=== PATIENT | female | born 1955 | race Caucasian/White ===

== ENCOUNTER 2017-03-16 15:41 | Inpatient (IN) | payer OTHER, MEDICARE ==
[~2017-03-16] VITALS: Ht 158.8 cm; Wt 104.5 kg
[2017-03-26] MEDS ORDERED: CITA40TA4 PO (10:44)
[2017-03-26] MEDS ORDERED: AMLO10TA2 PO (10:44)
[2017-03-26] MEDS ORDERED: LEVO75TA3 PO (10:44)
[2017-03-26] MEDS ORDERED: ROPI5TAB PO (10:44)
[2017-03-26] MEDS ORDERED: GABA300C5 PO (10:44)
[2017-03-26] MEDS ORDERED: ASPI81TA11 PO (10:45)
[2017-03-31] MEDS ORDERED: CHLORHEXIDINE GLUCONATE 2 % 1 PACK (2 CLOTHS) TOPICAL PRN (06:45)
[2017-03-31] MEDS ORDERED: INSULIN HUMAN REGULAR 1,000 UNITS/10 ML VIAL SQ PRN (06:45)
[2017-03-31] MEDS ORDERED: METOPROLOL TARTRATE 25 MG TAB PO PRN (06:45)
[2017-03-31] MEDS ORDERED: SODIUM CHLORID 0.9% 500 ML IV PRN (06:45)
[2017-03-31] MEDS ORDERED: DEXAMETHASONE SOD PHOS 4 MG/ML VIAL IV SCH (06:45)
[2017-03-31] MEDS ORDERED: POVIDONE IODINE 5% (ANTISEPSIS KIT) 4 APPLICATIONS EACH NARE PRN (06:45)
[2017-03-31] MEDS ORDERED: LACTATED RINGER'S 1000 ML IV PRN (06:45)
[2017-03-31] MEDS ORDERED: DEXAMETHASONE SOD PHOS 20 MG/5 ML VIAL ONE (06:45)
[2017-03-31] MEDS ORDERED: POVIDONE IODINE 7.5% SCRUB 118 ML BOTTLE TOPICAL SCH (06:45)
[2017-03-31] MEDS ORDERED: VANCOMYCIN 1000 MG/NS 250 ML (for <70 kg) IV SCH ×2 (06:45)
[2017-03-31] MEDS ORDERED: ceFAZolin 2 GM PREMIX 50 ML IV SCH (06:45)
--- NOTE | 2017-03-31 06:54 | HHI.DCPOC ---
Discharge Care Plan Diagnosis: (1) Status post total knee replacement, left (2) Primary localized osteoarthrosis, lower leg Your Health Problems Are: Difficulty with ADL Goals to Promote Your Health * To prevent worsening of your condition and complications * To maintain your health at the optimal level Directions to Meet Your Goals Take your medications as prescribed Follow your dietary instruction Follow activity as directed Keep your appointments as scheduled Take your immunizations and boosters as scheduled If your symptoms worsen call your PCP, if no PCP go to Urgent Care Center or Emergency Room Smoking is Dangerous to Your Health. Avoid second hand smoke Call the 24-hour hour crisis hotline for domestic abuse at Gregory Brambila Mar 31, 2017 06:54
--- NOTE | 2017-03-31 06:55 | HHI.FF ---
Face to Face Verification Diagnosis: (1) Primary localized osteoarthrosis, lower leg (2) Status post total knee replacement, left Physical Therapy Gait training, Transfer training, bed to chair Knee: Total knee Left LE Weight Bearing: WB as tolerated Left LE Range of Motion: Active ROM Nursing Nursing: Jamilah teaching, Dressing changes Dressing Changes: Daily dressing change I have seen patient Nakita Spence on 03/31/17. My clinical findings support the need for the requested home health care services because: Limited ability to care for self High risk of falls I certify that my clinical findings support that this patient is homebound because: Post-op weakness Unsteady gait/balance Gregory Brambila Mar 31, 2017 06:55
[2017-03-31] MEDS ORDERED: CPMMACHINE (06:57)
[2017-03-31] MEDS ORDERED: COMMODE 3-IN-11 MIS (06:57)
[2017-03-31] MEDS ORDERED: WALKER WHEELS/F1 MIS (06:57)
[2017-03-31] MEDS ORDERED: GENTAMICIN SULFATE 80 MG/2 ML VIAL ONE (06:59)
[2017-03-31] MEDS ORDERED: ROPIVACAINE PERI-ARTICULAR INJECTION. P-ARTICULR SCH ×5 (07:00)
[2017-03-31] MEDS ORDERED: TRANEXAMIC ACID IV SCH ×2 (07:00→11:00)
[2017-03-31] MEDS ORDERED: SODIUM CHLORIDE 0.9% IV SCH ×2 (07:00→11:00)
[2017-03-31 07:01] VITALS: BP 154/81; PULSE 74; RESP 18; TEMP 98.1; O2SAT 97
[2017-03-31] MEDS ORDERED: FAMOTIDINE 20 MG/2 ML VIAL ONE (07:50)
[2017-03-31] MEDS ORDERED: DICLOFENAC SODIUM 37.5 MG/ML VIAL IV PUSH ONE (07:51)
[2017-03-31] MEDS ORDERED: MIDAZOLAM HCL 2 MG/2 ML VIAL ONE (07:51)
[2017-03-31] MEDS ORDERED: VANCOMYCIN HCL 1000 MG VIAL ONE (08:25)
--- NOTE | 2017-03-31 10:21 | PD.OP ---
cc: Fredy Montgomery MD Operative Report Date of Surgery: Mar 31, 2017 Preoperative Diagnosis: Left knee severe osteoarthritis Postoperative Diagnosis: Same Procedure: Left total knee arthroplasty Anesthesia: Gen. Surgeon: Fredy Montgomery Ladler(s): KEV Lindo The surgical procedure was assisted by my Advanced Registered Nurse Practitioner. My HOUSE MOVER SUPERVISOR presence was necessary throughout this case for the manipulation and positioning of the surgical extremity. My HOUSE MOVER SUPERVISOR was assisting me throughout the duration of this procedure. The skill set of an Advance Registered Nurse Practitioner was medically necessary to complete this procedure. During the surgical case, the cardiovascular surgical tech was working at the back table and the Advance Registered Nurse Practitioner was directly assisting me. Operation and Findings: IMPLANTS: DePuy Attune: Patella: size 35. Femur, posterior stabilized size 5. Tibia, rotating platform size 4. Tibial insert, rotating platform, posterior stabilized size 5 mm thickness. ESTIMATED BLOOD LOSS: 150 cc TOURNIQUET TIME: 46 minutes at 250 mmHg pressure. JUSTIFICATION FOR PROCEDURE: The patient has end-stage osteoarthritis to the knee. There is an attached conservative measures pathway form in the chart that describes the nonoperative measures that were undertaken prior to consideration of surgical management. The patient understood the risks and benefits of surgical management. See my office notes for further details PROCEDURE: The patient was brought back to the operative theatre. Adequate anesthesia was obtained. The patient received intravenous vancomycin and Ancef. The lower extremity was prepped and draped in the usual sterile fashion.The leg was exsanguinated, the tourniquet was raised. A standard anterior incision was performed followed by medial parapatellar arthrotomy was performed. End-stage arthritis was identified. Osteotomy of the patella was performed. We drilled holes for the patella. We trialed the patella component. We placed an intramedullary guide into the distal femur. We ultimately resected 14 mm off of the distal femur in 5 degrees of valgus. The remnants of the ACL and PCL were resected. Osteotomy of the proximal tibia was performed, resecting 5 mm off of the medial side. This was done with 3 degrees of posterior slope using an extramedullary guide. The distal end of the guide was placed in the mid aspect of the ankle. The femur was sized, and four chamfer cuts were completed in 3 of external rotation. We then cut the central box in the distal femur to replace the PCL. We resected the remnants of the menisci and removed osteophytes off of the femur and tibia. We then trialed the knee. We punched the tibia for the keel, and then used standard technique to cement in components. Excess cement was removed. We trialed the knee again and the final polyethylene thickness was chosen to provide extension to 0 degrees, and flexion of 140 degrees to gravity. The ligaments were appropriately balanced. Lateral release was not necessary to obtain excellent patellofemoral tracking. The tourniquet was released and adequate hemostasis was obtained. An intra- articular injection of a ropivacaine cocktail was injected. The posterior knee was inspected for excess cement, which was removed. The final polyethylene was put into position after thorough irrigation. We then closed deep fascia with a #2 Stratafix followed by skin with 2-0 Vicryl followed by geeta. Postop plan is to weight-bear as tolerated. DVT prophylaxis will be performed with SCDalex, KIT randhawa, early mobilization, and Lovenox followed by aspirin. Fredy Montgomery MD Mar 31, 2017 10:21
[2017-03-31] MEDS ORDERED: ENOX40P SQ (10:23)
[2017-03-31] MEDS ORDERED: ASPI325T PO (10:23)
[2017-03-31] MEDS ORDERED: PERC10TA27 PO (10:23)
[2017-03-31] MEDS ORDERED: ALUMINUM/MAGNESIUM/SIMETH 30 ML CUP PO PRN (10:30)
[2017-03-31] MEDS ORDERED: ZOLPIDEM TARTRATE 5 MG TAB PO PRN (10:30)
[2017-03-31] MEDS ORDERED: NALOXONE HCL 0.4 MG/ML AMP IV PRN (10:30)
[2017-03-31] MEDS ORDERED: ONDANSETRON HCL 4 MG/2 ML VIAL IVP PRN (10:30)
[2017-03-31] MEDS ORDERED: BISACODYL 10 MG SUPP RECTAL PRN (10:30)
[2017-03-31] MEDS ORDERED: diphenhydrAMINE HCL 50 MG/ML VIAL IV PRN (10:30)
[2017-03-31] MEDS ORDERED: MAGNESIUM HYDROXIDE SUSP 30 ML CUP PO PRN (10:30)
[2017-03-31] MEDS ORDERED: HYDROmorphone HCL PF 2 MG/ML VIAL IV PRN (10:30)
[2017-03-31] MEDS ORDERED: SODIUM CHLORIDE 0.9% FLUSH 5 ML FLUSH IVF PRN (10:30)
[2017-03-31] MEDS ORDERED: HYDROmorphone HCL PF 1 MG/ML VIAL IV PRN (10:30)
[2017-03-31] MEDS ORDERED: oxyCODONE/ACETAMINOPHEN 10 MG/325 MG TAB PO PRN (10:30)
[2017-03-31] MEDS ORDERED: *HYDROmorphone PF 1 MG VIAL PERIprocedural Use ONLY ONE ×3 (10:59→12:53)
[2017-03-31] MEDS ORDERED: Post-op Orders (for Pharmacy) MISC XX ONE (11:00)
[2017-03-31] MEDS: SODIUM CHLOR 0.9% 1000 ML INJ 1,000 ML IV SCH (11:00)
--- NOTE | 2017-03-31 11:06 | PD.CONS ---
HPI Service [facility] Consult Requested By Dr. Montgomery Reason for Consult Medical management Primary Care Physician No Primary Care Physician Diagnoses: History of Present Illness This is a 61 year old female who complained of constant aching left knee pain worse with activity secondary to osteoarthritis. Underwent arthroplasty by Dr. Montgomery who requested consultation to evaluate and manage multiple medical conditions. Anesthesia records reviewed show she received 1300 mL crystalloid and EBL of 150 mL. Urine output not measured. Patient received Romazicon to reverse Versed. At this time, she complains of severe left knee pain. RN has contacted Dr. Montgomery who requested nerve block. Patient has history of hypertension controlled on Norvasc, anger issues and depression on Celexa, hypo- thyroidism stable on Synthroid and restless leg syndrome controlled on Requip. States her heart flutters but no diagnosis given. All other systems reviewed negative. Patient seen in PACU discussed with board runner of Systems Except as stated in HPI: all other systems reviewed are Neg Past Family Social History Allergies: Coded Allergies: Morphine (Verified Allergy, Severe, HIVES, MAKES PT "ANGRY", 03/31/17) Codeine (Verified Adverse Reaction, Severe, SEVERE STOMACH PAIN, 03/31/17) Demerol (Verified Adverse Reaction, Severe, NAUSEA, 03/31/17) Past Medical History As previously mentioned Past Surgical History Tonsillectomy, appendectomy, section and hysterectomy Reported Medications Aspirin EC (Aspirin) 81 Mg Tabdr 81 Mg PO DAILY Citalopram (Citalopram Hydrobromide) 40 Mg Tab 40 Mg PO DAILY Levothyroxine (Levothyroxine Sodium) 75 Mcg Tab 75 Mcg PO DAILY Amlodipine (Amlodipine Besylate) 10 Mg Tab 10 Mg PO DAILY Ropinirole 5 Mg Tab 5 Mg PO HS Gabapentin 300 Mg Cap 300 Mg PO BID Family History No hypertension Social History Does not smoke or drink Physical Exam Vital Signs Vital Signs Date Time Temp Pulse Resp B/P Pulse Ox O2 Delivery O2 Flow Rate FiO2 03/31/17 07:01 98.1 74 18 154/81 97 Physical Exam GENERAL: This is an obese, well-developed patient, in distress due to pain SKIN: No rashes, ecchymoses or lesions. Cool and dry. HEAD: Atraumatic. Normocephalic. No temporal or scalp tenderness. EYES: Pupils equal round and reactive. Extraocular motions intact. No scleral icterus. No injection or drainage. ENT: Nose without bleeding, purulent drainage or septal hematoma. Throat without erythema, tonsillar hypertrophy or exudate. Uvula midline. Airway patent. NECK: Trachea midline. No JVD or lymphadenopathy. Supple, nontender, no meningeal signs. CARDIOVASCULAR: Regular rate and rhythm without murmurs, gallops, or rubs. RESPIRATORY: Clear to auscultation. Breath sounds equal bilaterally. No wheezes , rales, or rhonchi. GASTROINTESTINAL: Abdomen soft, non-tender, nondistended. No guarding. MUSCULOSKELETAL: Extremities without clubbing, cyanosis, or edema. Left lower extremity with clean and dry dressing in a CKS NEUROLOGICAL: Awake and alert. Cranial nerves II through XII intact. Motor and sensory grossly within normal limits. Five out of 5 muscle strength in all muscle groups. Normal speech. Laboratory Preop laboratory remarkable for white count of 5000 hemoglobin 12.7 later count 239 BMP remarkable for a potassium of 4.5 sodium 143 urine nitrogen 12 creatinine 0.78 glucose of 84 INR of 1 EKG tracing interpreted by me with sinus rhythm no acute ST-T changes Laboratory Tests Test 03/31/17 07:03 Blood Type O POSITIVE Antibody Screen NEGATIVE Blood Bank Comment Assessment and Plan Assessment and Plan This is a 61 year old female who complained of constant aching left knee pain worse with activity secondary to osteoarthritis. Underwent arthroplasty by Dr. Montgomery who requested consultation to evaluate and manage multiple medical conditions. Anesthesia records reviewed show she received 1300 mL crystalloid and EBL of 150 mL. Urine output not measured. Patient received Romazicon to reverse Versed. At this time, she complains of severe left knee pain. RN has contacted Dr. Montgomery who requested nerve block. Continue postoperative care with physical therapy, wound care, pain management with Percocet and IV Dilaudid as needed and DVT prophylaxis with Lovenox. Monitor for REED REPAIRER and respiratory depression from narcotic use. Narcan as needed. Monitor for postoperative anemia repeat CBC in the morning Hypertension controlled on Norvasc. Continue to monitor Anger issues and depression on Celexa. Continue Celexa Hypothyroidism stable on Synthroid Restless leg syndrome controlled on Requip. States her heart flutters but no diagnosis given. EKG with sinus rhythm. Monitor on telemetry Discussed Condition With Patient and nursing staff Oscar Bahena MD Mar 31, 2017 11:06
[2017-03-31] MEDS ORDERED: fentaNYL CITRATE 250 MCG/5 ML AMP ONE (11:08)
[2017-03-31] MEDS ORDERED: ONDANSETRON HCL 4 MG/2 ML VIAL IV PUSH ONE (12:00)
[2017-03-31] MEDS ORDERED: NEOSTIGMINE 3 MG/3 ML SYR IV ONE (12:00)
[2017-03-31] MEDS ORDERED: LACTATED RINGER'S 1000 ML INJ 1,000 ML IV ONE (12:00)
[2017-03-31] MEDS ORDERED: PHENYLEPH/NS 1000 MCG/10 ML SYR IV ONE (12:00)
[2017-03-31] MEDS ORDERED: PROPOFOL 200 MG/20 ML AMP IV ONE (12:00)
[2017-03-31] MEDS ORDERED: ePHEDrine/NS 50 MG/5 ML SYR IV ONE (12:00)
--- NOTE | 2017-03-31 13:52 | RADRPT ---
EXAM DATE/TIME: 03/31/2017 12:59 [facility] COMPARISON: No previous studies available for comparison. INDICATIONS : Post op left total knee. MEDICAL HISTORY : None. SURGICAL HISTORY : None. ENCOUNTER: Initial ACUITY: 1 day PAIN SCORE: 10/10 LOCATION: Left knee. FINDINGS: Postsurgical features of left knee arthroplasty. Arthroplasty components are in anatomic alignment. N o significant acute bony fracture. Immediate postsurgical soft tissue features. CONCLUSION: 1. Status post left knee arthroplasty in anatomic alignment without significant acute bony fracture. Kit Jones MD on March 31, 2017 at 13:49 Board Certified Radiologist. This report was verified electronically.
[2017-03-31] MEDS ORDERED: *RESP: ALBUTEROL 2.5 MG/3 ML NEB (PRN) PERIprocedural Use ONLY NEB ONE (14:43)
[2017-03-31] MEDS: oxyCODONE/ACETAMINOPHEN 10 MG/325 MG TAB PO PRN (16:21)
[2017-03-31 18:10] VITALS: BP 107/55; PULSE 81; RESP 20; TEMP 98.8; O2SAT 95
[2017-03-31 19:40] VITALS: BP 112/59; PULSE 81; RESP 19; TEMP 96.7; O2SAT 94
[2017-03-31 19:41] VITALS: O2SAT 95
[2017-03-31] MEDS: GABAPENTIN 300 MG CAP PO SCH (20:31)
[2017-03-31] MEDS: SODIUM CHLORIDE 0.9% FLUSH 5 ML FLUSH IVF SCH (20:31)
[2017-03-31 23:57] VITALS: BP 100/58; PULSE 83; RESP 18; TEMP 97.6; O2SAT 97
[2017-04-01] MEDS: SODIUM CHLOR 0.9% 1000 ML INJ 1,000 ML IV SCH ×3 (00:48→16:17)
[2017-04-01 03:24] VITALS: BP 112/62; PULSE 82; RESP 18; TEMP 96.9; O2SAT 95
[2017-04-01] MEDS ORDERED: LEVOTHYROXINE SODIUM 75 MCG TAB PO SCH (06:00)
[2017-04-01 07:17] LABS: HEMATOCRIT 29.9 % (35.0-46.0); MEAN CELL VOLUME 84.4 FL (80.0-100.0); MEAN CORPUSCULAR HEMOGLOBIN 28.3 PG (27.0-34.0); MEAN CORPUSCULAR HGB CONC 33.6 % (32.0-36.0); PLATELET COUNT 157 TH/MM3 (150-450); RED BLOOD COUNT 3.54 MIL/MM3 (4.00-5.30); REVIEW FLAG FINAL; WHITE BLOOD COUNT 12.1 TH/MM3 (4.0-11.0)
[2017-04-01] MEDS ORDERED: DEXAMETHASONE SOD PHOS 20 MG/5 ML VIAL IV ONE (07:45)
[2017-04-01 08:00] VITALS: BP 115/52; PULSE 58; RESP 18; TEMP 98; O2SAT 96
[2017-04-01] MEDS: SODIUM CHLORIDE 0.9% FLUSH 5 ML FLUSH IVF SCH (08:27)
[2017-04-01] MEDS: GABAPENTIN 300 MG CAP PO SCH (08:27)
[2017-04-01] MEDS: oxyCODONE/ACETAMINOPHEN 10 MG/325 MG TAB PO PRN ×2 (08:28→16:01)
[2017-04-01] MEDS ORDERED: CITALOPRAM HYDROBROMIDE 40 MG TAB PO SCH (09:00)
--- NOTE | 2017-04-01 09:39 | HHI.PR ---
Subjective Remarks resting comfortably with no distress. pain is fairly controlled. no new complaints. Objective Vitals Vital Signs Date Time Temp Pulse Resp B/P Pulse Ox O2 Delivery O2 Flow Rate FiO2 04/01/17 03:24 96.9 82 18 112/62 95 03/31/17 23:57 97.6 83 18 100/58 97 03/31/17 19:41 95 Room Air 21 03/31/17 19:40 96.7 81 19 112/59 94 03/31/17 18:10 98.8 81 20 107/55 95 03/31/17 17:30 97.8 94 16 119/57 100 Nasal Cannula 3 03/31/17 17:00 98.0 95 15 131/63 100 Nasal Cannula 3 03/31/17 16:00 84 17 120/58 98 Nasal Cannula 3 03/31/17 15:30 76 17 130/64 98 Nasal Cannula 3 03/31/17 15:00 77 17 118/58 98 Nasal Cannula 3 03/31/17 14:30 80 18 110/53 98 Nasal Cannula 3 03/31/17 14:00 73 15 121/56 98 Nasal Cannula 3 03/31/17 13:30 77 16 129/74 98 Nasal Cannula 3 03/31/17 13:00 77 16 139/73 98 Nasal Cannula 3 03/31/17 12:30 71 17 126/68 94 Nasal Cannula 3 03/31/17 12:00 82 15 132/68 94 Nasal Cannula 3 03/31/17 11:45 82 15 132/64 94 Nasal Cannula 3 03/31/17 11:30 64 15 137/60 92 Nasal Cannula 3 03/31/17 11:15 82 16 150/66 94 Nasal Cannula 3 03/31/17 11:00 95 16 137/60 98 Nasal Cannula 3 03/31/17 10:54 97.7 88 15 122/76 92 Nasal Cannula 3 I/O 03/31/17 03/31/17 03/31/17 04/01/17 04/01/17 04/01/17 07:00 15:00 23:00 07:00 15:00 23:00 Intake Total 1300 ml 1190 ml 480 ml Output Total 0 ml 250 ml Balance 1300 ml 940 ml 480 ml Intake Oral 840 ml 480 ml TPN/PPN 350 ml Other 1300 ml Output Urine Total 0 ml 250 ml # Voids 1 1 # Bowel Movements 0 0 Result Diagram: 04/01/17 0603 Imaging Last Impressions Knee X-Ray 03/31/17 1017 Signed Impressions: Service Date/Time: Friday, March 31, 2017 12:59 - CONCLUSION: 1. Status post left knee arthroplasty in anatomic alignment without significant acute bony fracture. Kit Jones MD Objective Remarks GENERAL: This is a well-nourished, well-developed patient, in no apparent distress. CARDIOVASCULAR: Regular rate and regular rhythm without murmurs, gallops, or rubs. RESPIRATORY: Clear to auscultation. Breath sounds equal bilaterally. No wheezes , rales, or rhonchi. GASTROINTESTINAL: Abdomen soft, non-tender, nondistended. Normal, active bowel sounds MUSCULOSKELETAL: left knee covered with clean dressing. NEURO: Alert & Oriented x4 to person, place, time, situation. Moves all ext x4 Medications and IVs Current Medications Lactated Ringer's 1,000 ml @ 30 mls/hr Q24H PRN IV SEE LABEL COMMENTS Last administered on 03/31/17 07:05; Start 03/31/17 at 06:45; Stop 03/31/17 at 13:00; Status DC Sodium Chloride (NS 500 ml Inj) 500 ml @ 30 mls/hr [id number] PRN IV SEE LABEL COMMENTS; Start 03/31/17 at 06:45; Stop 03/31/17 at 13:00; Status DC Metoprolol Tartrate (Lopressor) 25 mg PEDORTHIST PRN PO SEE LABEL COMMENTS; Start 03/31/17 at 06:45; Stop 04/03/17 at 06:44 Povidone Iodine (Betadine 5% Antisepsis Kit) 1 applic PEDORTHIST PRN EACH NARE SEE LABEL COMMENTS Last administered on 03/31/17 07:21; Start 03/31/17 at 06:45; Stop 04/03/17 at 06:44 Chlorhexidine Gluconate (Chlorhexidine 2% Cloth) 3 pack PEDORTHIST PRN TOPICAL SEE LABEL COMMENTS Last administered on 03/31/17 06:30; Start 03/31/17 at 06:45; Stop 04/03/17 at 06:44 Insulin Human Regular (NovoLIN R INJ) See Protocol Table ... PEDORTHIST PRN SQ SEE PROTOCOL TABLE; Start 03/31/17 at 06:45; Stop 04/03/17 at 06:44 Dexamethasone Sodium Phosphate (Decadron Inj) 10 mg PEDORTHIST IV Last administered on 03/31/17 07:12; Start 03/31/17 at 06:45; Stop 03/31/17 at 18:00; Status DC Povidone Iodine 1 applic 1 applic ONCE TOPICAL ; Start 03/31/17 at 06:45; Stop at 06:44 Cefazolin Sodium/ Dextrose 50 ml @ 100 mls/hr PEDORTHIST IV Last administered on 03/31/17 07:22; Start 03/31/17 at 06:45; Stop 03/31/17 at 13:01; Status DC Vancomycin HCl 1000 mg/Sodium Chloride 250 ml @ 250 mls/hr PEDORTHIST IV Last administered on 03/31/17 07:22; Start 03/31/17 at 06:45; Stop 04/03/17 at 06:44 Tranexamic Acid 1045 mg/Sodium Chloride 110.45 ml @ 200 mls/ hr ONCE IV Last administered on 03/31/17 08:38; Start 03/31/17 at 07:00; Stop 03/31/17 at 13:00; Status DC Ropivacaine/ Ketorolac Tromethamine/ Epinephrine HCl/ Clonidine/Sodium Chloride (Naropin 0.5% Pf Inj/Toradol Inj/ Adrenalin (1:1000) Inj/ Duraclon Inj/NS Inj) 100 ml @ 200 mls/hr ONCE P-ARTICULR Last administered on 03/31/17 09:08; Start 03/31/17 at 07:00; Stop 03/31/17 at 13:00; Status DC Dexamethasone Sodium Phosphate (Decadron Inj) 20 mg STK-MED ONCE .ROUTE ; Start 03/31/17 at 06:45; Stop 03/31/17 at 06:46; Status DC Gentamicin Sulfate (Gentamicin Inj) 240 mg STK-MED ONCE .ROUTE Last administered on 03/31/17 09:08; Start 03/31/17 at 06:59; Stop 03/31/17 at 07:00; Status DC Famotidine (Pepcid Inj) 20 mg STK-MED ONCE .ROUTE ; Start 03/31/17 at 07:50; Stop 03/31/17 at 07:51; Status DC Midazolam HCl (Versed Inj) 2 mg STK-MED ONCE .ROUTE ; Start 03/31/17 at 07:51; Stop 03/31/17 at 07:52; Status DC Diclofenac Sodium (Dyloject Inj) 37.5 mg STK-MED ONCE IV PUSH ; Start 03/31/17 at 07:51; Stop 03/31/17 at 07:52; Status DC Vancomycin HCl (Vancomycin Inj) 1,000 mg STK-MED ONCE .ROUTE Last administered on 03/31/17 07:30; Start 03/31/17 at 08:25; Stop 03/31/17 at 08:26; Status DC Amlodipine Besylate (Norvasc) 10 mg DAILY PO ; Start 04/01/17 at 09:00 Citalopram Hydrobromide (CeleXA) 40 mg DAILY PO Last administered on 04/01/17 08:27; Start 04/01/17 at 09:00 Gabapentin (Neurontin) 300 mg BID PO Last administered on 04/01/17 08:27; Start 03/31/17 at 21:00 Levothyroxine Sodium (Synthroid) 75 mcg DAILY@0600 PO Last administered on 06:30; Start 04/01/17 at 06:00 Ropinirole HCl 5 mg 5 mg HS PO Last administered on 03/31/17 20:34; Start at 21:00 Sodium Chloride (NS 1000 ml Inj) 1,000 ml @ 100 mls/hr Q10H IV Last administered on 04/01/17 00:48; Start 03/31/17 at 10:17 IV Flush (NS Flush) 2 ml UNSCH PRN IVF FLUSH AFTER USING IV ACCESS; Start at 10:30 IV Flush 2 ml 2 ml BID IVF Last administered on 04/01/17 08:27; Start 03/31/17 at 21:00 Cefazolin Sodium/ Sodium Chloride (Ancef Inj/NS Inj) 100 ml @ 200 mls/hr Q6H IV Last administered on 04/01/17 00:46; Start 03/31/17 at 13:00; Stop 04/01/17 at 01:29; Status DC Miscellaneous Information (Post-op Orders (for Pharmacy)) STAT ONCE XX ; Start 03/31/17 at 11:00; Stop 03/31/17 at 13:30; Status DC Dexamethasone Sodium Phosphate (Decadron Inj) 10 mg ONCE ONCE IV Last administered on 04/01/17t 08:27; Start 04/01/17 at 07:45; Stop 04/01/17 at 07:46; Status DC Enoxaparin Sodium 40 mg 40 mg Q24H SQ ; Start 04/01/17 at 10:00; Stop 04/10/17 at 10:01 Tranexamic Acid/ Sodium Chloride (Cyklokapron Inj/ NS Inj) 110.45 ml @ 200 mls / hr UNSCH IV ; Start 03/31/17 at 11:00; Stop 03/31/17 at 11:34; Status DC Multivitamins/ Minerals Therapeutic (Theragran M Tab) 1 tab BID PO ; Start at 21:00; Stop 05/31/17 at 20:59 Ondansetron HCl (Zofran Inj) 4 mg Q6H PRN IVP NAUSEA OR VOMITING; Start at 10:30 Docusate Sodium (Colace) 100 mg BID PO ; Start 04/01/17 at 21:00 Al Hydrox/Mg Hydrox/Simethicone (Mag-Al Plus Susp Liq) 30 ml Q6H PRN PO INDIGESTION; Start 03/31/17 at 10:30 Zolpidem Tartrate (Ambien) 5 mg HS PRN PO SLEEP; Start 03/31/17 at 10:30 Bisacodyl (Dulcolax Supp) 10 mg DAILY PRN RECTAL CONSTIPATION; Start 03/31/17 at 10:30 Magnesium Hydroxide (Milk Of Magnesia Liq) 30 ml DAILY PRN PO CONSTIPATION; Start 03/31/17 at 10:30 Naloxone HCl (Narcan Inj) 0.4 mg UNSCH PRN IV RESPIRATORY RATE LESS THAN 10; Start 03/31/17 at 10:30 Diphenhydramine HCl (Benadryl Inj) 25 mg Q6H PRN IV ITCHING; Start 03/31/17 at 10:30 Hydromorphone HCl (Dilaudid Pf Inj) 0.5 mg Q3H PRN IV PAIN SCALE 1 TO 5;IF NPO ; Start 03/31/17 at 10:30 Hydromorphone HCl (Dilaudid Pf Inj) 2 mg Q3H PRN IV PAIN SCALE 6 TO 10;IF NPO; Start 03/31/17 at 10:30 Oxycodone/ Acetaminophen (Percocet 10-325 Mg) 1 tab Q4H PRN PO pain < 5 Last administered on 04/01/17 08:28; Start 03/31/17 at 10:30 Oxycodone/ Acetaminophen (Percocet 10-325 Mg) 2 tab Q4H PRN PO pain = or > 5; Start 03/31/17 at 10:30 Hydromorphone HCl (*DILAUDID PF INJ PERIprocedural ONLY) 1 mg STK-MED ONCE .ROUTE Last administered on 03/31/17 10:59; Start 03/31/17 at 10:59; Stop at 11:00; Status DC Fentanyl Citrate (fentaNYL INJ) 250 mcg STK-MED ONCE .ROUTE ; Start 03/31/17 at 11:08; Stop 03/31/17 at 11:09; Status DC Fentanyl Citrate (fentaNYL INJ) 200 mcg STK-MED ONCE .ROUTE ; Start 03/31/17 at 11:08; Stop 03/31/17 at 11:09; Status DC Hydromorphone HCl (*DILAUDID PF INJ PERIprocedural ONLY) 1 mg STK-MED ONCE .ROUTE Last administered on 03/31/17 11:18; Start 03/31/17 at 11:18; Stop at 11:19; Status DC Hydromorphone HCl (*DILAUDID PF INJ PERIprocedural ONLY) 1 mg STK-MED ONCE .ROUTE Last administered on 03/31/17 12:53; Start 03/31/17 at 12:53; Stop at 12:54; Status DC Albuterol Sulfate (*ALBUTEROL NEB PERIprocedure ONLY) 2.5 mg STK-MED ONCE NEB Last administered on 03/31/17 14:43; Start 03/31/17 at 14:43; Stop 03/31/17 at 14: 44; Status DC A/P Assessment and Plan A/P s/p left total knee arthroplasty- continue with pain control and PT- management per ortho anemia- post-op- will monitoe H/H Hypertension controlled on Norvasc. Continue to monitor Anger issues and depression on Celexa. Continue Celexa Hypothyroidism stable on Synthroid Restless leg syndrome controlled on Requip. States her heart flutters which has resolved- remained in sinus rhythm- will dc telemetry. DVT prophylaxis with Lovenox. Gurpreet Chaney MD Apr 01, 2017 09:39
[2017-04-01] MEDS ORDERED: ENOXAPARIN SODIUM 40 MG/0.4 ML SYRINGE SQ SCH (10:00)
[2017-04-01 12:00] VITALS: BP 109/53; PULSE 58; RESP 18; TEMP 97.2; O2SAT 95
--- NOTE | 2017-04-01 12:24 | PD.ORT.PN ---
Subjective Post Op Day #: 1 Subjective Remarks The patient is resting in bed with mild to moderate pain. Patient felt like she had a little weakness to the LLE when ambulatory this morning. Patient unsure if she is ready for discharge home today. Objective Vitals Vital Signs Date Time Temp Pulse Resp B/P Pulse Ox O2 Delivery O2 Flow Rate FiO2 04/01/17 03:24 96.9 82 18 112/62 95 03/31/17 23:57 97.6 83 18 100/58 97 03/31/17 19:41 95 Room Air 21 03/31/17 19:40 96.7 81 19 112/59 94 03/31/17 18:10 98.8 81 20 107/55 95 03/31/17 17:30 97.8 94 16 119/57 100 Nasal Cannula 3 03/31/17 17:00 98.0 95 15 131/63 100 Nasal Cannula 3 03/31/17 16:00 84 17 120/58 98 Nasal Cannula 3 03/31/17 15:30 76 17 130/64 98 Nasal Cannula 3 03/31/17 15:00 77 17 118/58 98 Nasal Cannula 3 03/31/17 14:30 80 18 110/53 98 Nasal Cannula 3 03/31/17 14:00 73 15 121/56 98 Nasal Cannula 3 03/31/17 13:30 77 16 129/74 98 Nasal Cannula 3 03/31/17 13:00 77 16 139/73 98 Nasal Cannula 3 03/31/17 12:30 71 17 126/68 94 Nasal Cannula 3 I/O 03/31/17 03/31/17 03/31/17 04/01/17 04/01/17 04/01/17 06:59 14:59 22:59 06:59 14:59 22:59 Intake Total 1300 ml 1190 ml 480 ml Output Total 0 ml 250 ml Balance 1300 ml 940 ml 480 ml Intake Oral 840 ml 480 ml TPN/PPN 350 ml Other 1300 ml Output Urine Total 0 ml 250 ml # Voids 1 1 # Bowel Movements 0 0 Result Diagram: 04/01/17 0603 Procedures Left TKA Objective Remarks The patient's dressing is changed with no drainage. Incision is well approximated with surgical clips intact. No redness or s/s of infection. EHL/ TA/G intact. 2+ pedal pulse. No calf swelling or tenderness. + SILT. Assessment & Plan Ortho Post Op Day #: 1 Problem List: Assessment and Plan POD #1: Left TKA 1. WBAT LLE 2. Lovenox followed by ASA for DVT prophylaxis 3. Ice to the left knee PRN 4. Stable for discharge home with home health today if more ambulatory this afternoon. Gregory Brambila Apr 01, 2017 12:24
[2017-04-01] MEDS ORDERED: DOCUSATE SODIUM 100 MG CAP PO SCH (21:00)
[2017-04-01] MEDS ORDERED: MULTIVITAMINS/MINERALS THERAPEUTIC TAB PO SCH (21:00)
--- NOTE | 2017-04-03 19:48 | HHI.DS ---
Discharge Summary Admission Date Mar 31, 2017 at 06:04 Discharge Date: Apr 01, 2017 Admitting Diagnosis Primary localized OA, lower leg Status post total knee replacement, left Diagnosis: (1) Primary localized osteoarthrosis, lower leg Diagnosis: Principal (2) Status post total knee replacement, left Diagnosis: Principal Procedures Left TKA Brief History This is a 61 year old female patient with severe OA of the left knee. CBC/BMP: 04/01/17 0603 Significant Findings Laboratory Tests Test 04/01/17 06:03 White Blood Count 12.1 TH/MM3 (4.0-11.0) Red Blood Count 3.54 MIL/MM3 (4.00-5.30) Hemoglobin 10.0 GM/DL (11.6-15.3) Hematocrit 29.9 % (35.0-46.0) PE at Discharge The patient's dressing is changed with no drainage. Incision is well approximated with surgical clips intact. No redness or s/s of infection. EHL/ TA/G intact. 2+ pedal pulse. No calf swelling or tenderness. + SILT. Hospital Course The patient was admitted to the hospital for severe left knee OA to have a left TKA. The patient's surgery went well with no complications. The patient is WBAT on the LLE. The patient is on a regular diet. The patient was discharged home on Lovenox followed by ASA for DVT prophylaxis. The patient was discharged home with home health and will f/u in the office with Dr. Montgomery as previously arranged. Pt Condition on Discharge: Stable Discharge Disposition: Disch w/ Home Health Serv Discharge Instructions Diet Instructions: As Tolerated, No Restrictions Activities You Can Perform: Weight Bearing as Leigh Ann Activities to Avoid: Strenuous Activity Follow up Referrals: Orthopedics with Fredy Montgomery MD New Medications: Aspirin (Aspirin) 325 Mg Tab 325 MG PO DAILY Start Aspirin after Lovenox is completed. Prevent Blood Clot # 30 Ref 0 TAB Commode 3-in-1 (Commode 3-in-1) 1 Mis Mis 1 EA .ROUTE DIRECTED #1 Ref 0 EA CPM-Continuous Passive Motion Machine (CPM-Continuous Passive Motion Machine) 1 Ea Device 1 EA .ROUTE DIRECTED #1 Ref 0 EA Enoxaparin Inj (Lovenox Inj) 40 Mg/0.4 Ml Syr 40 MG SQ DAILY Start Aspirin after Lovenox is completed. Blood Clot Prevention # 10 Ref 0 SYRINGE Oxycodone-Acetaminophen (Percocet) 10-325 mg Tab 1-2 TAB PO Q4H PRN PAIN #60 Ref 0 TAB Walker with Front Wheels (Walker with Front Wheels) 1 Mis Mis 1 EA .ROUTE DIRECTED #1 Ref 0 EA Continued Medications: Amlodipine (Amlodipine) 10 Mg Tab 10 MG PO DAILY Blood Pressure Management #30 Ref 0 TAB Citalopram (Citalopram) 40 Mg Tab 40 MG PO DAILY Control Depression #30 Ref 0 TAB Gabapentin (Gabapentin) 300 Mg Cap 300 MG PO BID #60 Ref 0 CAP Levothyroxine (Levothyroxine) 75 Mcg Tab 75 MCG PO DAILY Thyroid #30 Ref 0 TAB Ropinirole (Ropinirole) 5 Mg Tab 5 MG PO HS #30 Ref 0 TAB Discontinued Medications: Aspirin DR (Aspirin EC) 81 Mg Tabdr 81 MG PO DAILY Ref 0 TAB Gregory Brambila Apr 03, 2017 19:48
== END 2017-04-01 16:58 | disposition home health service (06) | DRG 470 ==
LOC: HSDI 03-31 06:04 → EDUNIT# 03-31 08:30 → N06B 03-31 17:59
PROVIDERS: ADMIT Orthopaedic Surgery; ATTEND Orthopaedic Surgery
PROC: 3E0T3CZ (ICD-10-PCS; 2017-03-31)
PROC: 0SRD0J9 Replacement of Left Knee Joint with Synthetic Substitute, Cemented, Open Approach (ICD-10-PCS; principal; 2017-03-31 08:13)
DX: M17.12 Unilateral primary osteoarthritis, left knee (principal); I10 Essential (primary) hypertension; E03.9 Hypothyroidism, unspecified; D64.9 Anemia, unspecified; G25.81 Restless legs syndrome; F32.9 Major depressive disorder, single episode, unspecified; Z79.899 Other long term (current) drug therapy
CPT/HCPCS: 73560; 85027; 86850; 86900; 86901; 94150; 94664; 94762; C1776; J0171; J0690; J0735; J1100; J1130; J1170; J1580; J1650; J1885; J2250; J2370; J2405; J2710; J2795; J3010; J3370; J7030; J7050; J7120; J7613; L1830